=== PATIENT | male | born 1990 | race Hispanic/Latino ===

== ENCOUNTER 2018-06-03 13:57 | Emergency (ER) | payer SELFPAY ==
--- NOTE | 2018-06-03 14:54 | RAD REPORT ---
EXAM DESCRIPTION: Ribs Right - 06/03/2018 2:42 pm CLINICAL HISTORY: Right rib pain FINDINGS: No fracture is seen
--- NOTE | 2018-06-03 14:58 | EDPHYS ---
Physician Documentation [facility] Name: Lewis Rodriguez Age: 27 yrs Sex: Male : 1990 Arrival Date: 06/03/2018 Time: 14:00 Bed 13 Private MD: ED Physician Robert Hernandez HPI: 06/03 14:18 This 27 yrs old Male presents to ER via Ambulatory with complaints of Fall kb Injury. 14:18 Details of fall: The patient fell from an upright position. Onset: The symptoms/episode kb began/occurred yesterday. Associated injuries: The patient sustained injury to the chest, specifically the right lateral posterior chest, tenderness. Severity of symptoms: At their worst the symptoms were moderate, in the emergency department the symptoms are unchanged. The patient has not experienced similar symptoms in the past. The patient has not recently seen a physician. Pt states he was going up some stairs and fell. c/o right posterior lower rib pain.. Historical: - Allergies: 14:09 No Known Allergies; aj - Home Meds: 14:09 None [Active]; aj - PMHx: 14:09 None; aj - PSHx: 14:09 Knee surgery; aj - Immunization history: Last tetanus immunization: - up to date. - Social history:: Smoking status: Patient/guardian denies using tobacco. - Ebola Screening: : Patient negative for fever greater than or equal to 101.5 degrees Fahrenheit, and additional compatible Ebola Virus Disease symptoms Patient denies exposure to infectious person Patient denies travel to an Ebola-affected area in the 21 days before illness onset No symptoms or risks identified at this time. ROS: 14:18 Constitutional: Negative for fever, chills, and weight loss, Respiratory: Negative for kb shortness of breath, cough, wheezing, and pleuritic chest pain, Abdomen/GI: Negative for abdominal pain, nausea, vomiting, diarrhea, and constipation, MS/Extremity: Negative for injury and deformity, Skin: Negative for injury, rash, and discoloration, Neuro: Negative for headache, weakness, numbness, tingling, and seizure. 14:18 Cardiovascular: Positive for chest pain, with movement, of the right lateral posterior chest. Exam: 14:18 Constitutional: This is a well developed, well nourished patient who is awake, alert, kb and in no acute distress. Head/Face: Normocephalic, atraumatic. Cardiovascular: Regular rate and rhythm with a normal S1 and S2. No gallops, murmurs, or rubs. Normal PMI, no JVD. No pulse deficits. Respiratory: Lungs have equal breath sounds bilaterally, clear to auscultation and percussion. No rales, rhonchi or wheezes noted. No increased work of breathing, no retractions or nasal flaring. Abdomen/GI: Soft, non-tender, with normal bowel sounds. No distension or tympany. No guarding or rebound. No evidence of tenderness throughout. Skin: Warm, dry with normal turgor. Normal color with no rashes, no lesions, and no evidence of cellulitis. MS/ Extremity: Pulses equal, no cyanosis. Neurovascular intact. Full, normal range of motion. Neuro: Awake and alert, GCS 15, oriented to person, place, time, and situation. Cranial nerves II-XII grossly intact. Motor strength 5/5 in all extremities. Sensory grossly intact. Cerebellar exam normal. Normal gait. 14:18 Chest/axilla: Inspection: normal, Palpation: tenderness, that is moderate, of the right lateral posterior chest, that totally reproduces the patient's complaints. Vital Signs: 14:03 BP 139 / 79; Pulse 71; Resp 20; Temp 98.1; Pulse Ox 98% on R/A; Weight 63.5 kg; Height aj 5 ft. 9 in. (175.26 cm); 14:54 BP 128 / 82; Pulse 70; Resp 18; Pulse Ox 98% ; tl3 14:03 Body Mass Index 20.67 (63.50 kg, 175.26 cm) aj Mcallen Coma Score: 14:03 Eye Response: spontaneous(4). Verbal Response: oriented(5). Motor Response: obeys aj commands(6). Total: 15. Trauma Score (Adult): 14:03 Eye Response: spontaneous(1); Verbal Response: oriented(1); Motor Response: obeys aj commands(2); Systolic BP: > 89 mm Hg(4); Respiratory Rate: 10 to 29 per min(4); Mcallen Score: 15; Trauma Score: 12 MDM: 14:07 Patient medically screened. zina 14:18 Data reviewed: vital signs, nurses notes. Data interpreted: Pulse oximetry: on room air kb is 98 %. Interpretation: normal. Counseling: I had a detailed discussion with the patient and/or guardian regarding: the historical points, exam findings, and any diagnostic results supporting the discharge/admit diagnosis, radiology results, the need for outpatient follow up, a family practitioner, to return to the emergency department if symptoms worsen or persist or if there are any questions or concerns that arise at home. 06/03 14:08 Order name: Ribs Right XRAY; Complete Time: 14:56 kb Administered Medications: No medications were administered Disposition: 16:13 Co-signature as Attending Physician, Robert Hernandez MD. Disposition: 06/03/18 14:57 Discharged to Home. Impression: Contusion of right back wall of thorax. - Condition is Stable. - Discharge Instructions: Chest Contusion, [id number]. - Medication Reconciliation Form, Thank You Letter, Antibiotic Education, Prescription Opioid Use form. - Follow up: Emergency Department; When: As needed; Reason: Worsening of condition. Follow up: Private Physician; When: 2 - 3 days; Reason: Recheck today's complaints, Continuance of care, Re-evaluation by your physician. Signatures: Dispatcher [employer] EDMS Irma Anand, LOG SKIDDER-C LOG SKIDDER-Iveth Wong RN RN aj Starr, Gregory, MD MD Elena Aviles RN RN tl3 Corrections: (The following items were deleted from the chart) 15:40 14:57 06/03/2018 14:57 Discharged to Home. Impression: Contusion of right back wall of tl3 thorax. Condition is Stable. Forms are Medication Reconciliation Form, Thank You Letter, Antibiotic Education, Prescription Opioid Use. Follow up: Emergency Department; When: As needed; Reason: Worsening of condition. Follow up: Private Physician; When: 2 - 3 days; Reason: Recheck today's complaints, Continuance of care, Re-evaluation by your physician. kb
--- NOTE | 2018-06-03 14:58 | ER ---
Nurse's Notes [facility] Name: Lewis Rodriguez Age: 27 yrs Sex: Male : 1990 Arrival Date: 06/03/2018 Time: 14:00 Bed 13 Private MD: Diagnosis: Contusion of right back wall of thorax Presentation: 06/03 14:03 Presenting complaint: Patient states: Fell walking up stairs hitting right ribs aj yesterday. Patient reports pain when breathing. Ambulated to triage with steady gait. Care prior to arrival: None. Mechanism of Injury: Fall from standing position. Trauma event details: Injury occurred in the [facility], Injury occurred: at home. Injury occurred: June 02, 2018. 14:03 Acuity: LAY 4 aj 14:03 Method Of Arrival: Ambulatory aj 14:08 Transition of care: patient was not received from another setting of care. Onset of aj symptoms was June 02, 2018. 15:32 Risk Assessment: Do you want to hurt yourself or someone else? Patient reports no tl3 desire to harm self or others. Initial Sepsis Screen: Does the patient meet any 2 criteria? No. Patient's initial sepsis screen is negative. Does the patient have a suspected source of infection? No. Patient's initial sepsis screen is negative. Trauma Activation: Not Applicable Physician: ED Physician; Name: ; Notified At: ; Arrived At: Physician: General Surgeon; Name: ; Notified At: ; Arrived At: Physician: Radiology; Name: ; Notified At: ; Arrived At: Physician: Respiratory; Name: ; Notified At: ; Arrived At: Physician: Lab; Name: ; Notified At: ; Arrived At: Historical: - Allergies: 14:09 No Known Allergies; aj - Home Meds: 14:09 None [Active]; aj - PMHx: 14:09 None; aj - PSHx: 14:09 Knee surgery; aj - Immunization history: Last tetanus immunization: - up to date. - Social history:: Smoking status: Patient/guardian denies using tobacco. - Ebola Screening: : Patient negative for fever greater than or equal to 101.5 degrees Fahrenheit, and additional compatible Ebola Virus Disease symptoms Patient denies exposure to infectious person Patient denies travel to an Ebola-affected area in the 21 days before illness onset No symptoms or risks identified at this time. Screenin:03 Abuse screen: Denies threats or abuse. Denies injuries from another. Tuberculosis aj screening: No symptoms or risk factors identified. 14:54 Nutritional screening: No deficits noted. Fall Risk None identified. tl3 Primary Survey: 14:03 Breathing/Chest: Respiratory pattern: regular, Respiratory effort: spontaneous, aj unlabored, Breath sounds: clear, bilaterally. Chest inspection: symmetrical rise and fall of the chest. Circulation: Skin color: pink, Skin temperature: warm, dry. Disability Alert. Assessment: 14:03 General: Appears in no apparent distress. comfortable, Behavior is calm, cooperative, aj appropriate for age. Pain: Complains of pain in right eighth rib, right ninth rib and right tenth rib. Neuro: Level of Consciousness is awake, alert, obeys commands, Oriented to person, place, time, situation, Appropriate for age. Respiratory: Reports pain with respiration since yesterday Airway is patent Respiratory effort is even, unlabored, Respiratory pattern is regular, symmetrical. Derm: Skin is intact, is healthy with good turgor, Skin is pink, warm \T\ dry. normal. 14:54 Reassessment: Patient and/or family updated on plan of care and expected duration. Pain tl3 level reassessed. Patient is alert, oriented x 3, equal unlabored respirations, skin warm/dry/pink. chest xray complete, no needs at this time. Vital Signs: 14:03 BP 139 / 79; Pulse 71; Resp 20; Temp 98.1; Pulse Ox 98% on R/A; Weight 63.5 kg; Height aj 5 ft. 9 in. (175.26 cm); 14:54 BP 128 / 82; Pulse 70; Resp 18; Pulse Ox 98% ; tl3 14:03 Body Mass Index 20.67 (63.50 kg, 175.26 cm) aj Cordova Coma Score: 14:03 Eye Response: spontaneous(4). Verbal Response: oriented(5). Motor Response: obeys aj commands(6). Total: 15. Trauma Score (Adult): 14:03 Eye Response: spontaneous(1); Verbal Response: oriented(1); Motor Response: obeys aj commands(2); Systolic BP: > 89 mm Hg(4); Respiratory Rate: 10 to 29 per min(4); Cordova Score: 15; Trauma Score: 12 ED Course: 14:00 Patient arrived in ED. rg4 14:03 Irma Anand FNP-C is [facility]. kb 14:03 Robert Hernandez MD is Attending Physician. kb 14:05 Triage completed. aj 14:09 Arm band placed on left wrist. Patient placed in an exam room. aj 14:26 Elena Aviles, RN is Primary Nurse. tl3 14:40 X-ray completed. Patient tolerated procedure well. kp1 14:41 Ribs Right XRAY In Process Unspecified. EDMS 14:54 Patient has correct armband on for positive identification. Bed in low position. Call tl3 light in reach. Side rails up X 1. Pulse ox on. NIBP on. Warm blanket given. 14:54 No provider procedures requiring assistance completed. Patient did not have IV access tl3 during this emergency room visit. Administered Medications: No medications were administered Outcome: 14:57 Discharge ordered by MD. kb 15:15 Discharged to home ambulatory. tl3 15:15 Condition: stable 15:40 Patient left the ED. tl3 Signatures: Dispatcher [employer] EDMT Irma Anand FNP-C FNP-Iveth Wong, RN RN Josie Hardwick rg4 Flaquita Sarabia kp1 Elena Aviles, RN RN tl3 Corrections: (The following items were deleted from the chart) 15:37 15:15 Discharged to home ambulatory, tl3 tl3 15:37 15:15 Condition: stable tl3 tl3 15:37 15:15 Discharge instructions given to patient, Instructed on discharge instructions, tl3 follow up and referral plans. medication usage, Demonstrated understanding of instructions, follow-up care, medications, Prescriptions given X 1, stressed returning to ER with any returning S/S tl3 15:39 15:32 PO 0, IV 1000, Intake Total 1000. tl3 tl3 15:39 15:33 BP 138 / 59 Supine; Pulse 63bpm; Resp 16bpm; Spontaneous; Pulse Ox 100%; tl3 tl3 15:39 15:34 BP 149 / 67 Sitting; Pulse 72bpm; Resp 16bpm; Pulse Ox 100%; tl3 tl3 15:39 15:35 BP 145 / 63 Standing; Pulse 76bpm; Resp 18bpm; Pulse Ox 100% RA; tl3 tl3 15:39 15:37 Discharge instructions given to patient, Instructed on discharge instructions, tl3 follow up and referral plans. medication usage, Demonstrated understanding of instructions, follow-up care, medications, Prescriptions given X 1, prior to discharge orthostatic B/P 's done and pt ambulated to restroom without dizziness or distress, stated she felt better, stressed returning to ER with any returning S/S tl3 : 15:37 Discharged to home ambulatory, 3 3 15:37 Condition: stable 3 3
[2018-06-03 15:49] VITALS: TEMP 98.1; O2SAT 98
[2018-06-03 15:51] VITALS: BP 128/82
== END 2018-06-03 15:40 | disposition home or self-care (01) ==
LOC: ER 13:57
DX: S20.221A Contusion of right back wall of thorax, initial encounter (principal); W17.89XA Other fall from one level to another, initial encounter; Y93.01 Activity, walking, marching and hiking; Y92.018 Other place in single-family (private) house as the place of occurrence of the external cause
CPT/HCPCS: 99283

== ENCOUNTER 2024-09-22 01:31 | Emergency (ER) | payer SELFPAY ==
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
[2024-09-22] MEDS ORDERED: PANTOPRAZOLE 40 MG INJ ONE (02:15)
[2024-09-22] MEDS ORDERED: ONDANSETRON 4 MG/2 ML VIAL ONE (02:15)
[2024-09-22] MEDS ORDERED: NA CHLORIDE 0.9% 1,000 ML ONE (02:16)
[2024-09-22] MEDS ORDERED: FAMOTIDINE 20 MG/2 ML VIAL IV ONE (02:16)
[2024-09-22 02:36] LABS: Absolute Basophils 0.1 K/uL (0-0.5); Absolute Lymphocytes (CBC) 1.9 K/uL (0.7-4.9); Absolute Monocytes 1.1 K/uL (0.1-1.3); Absolute Neutrophil 10.3 K/uL (1.8-8.0); Basophils % 0.5 % (0-1.3); Eosinophils % 0.1 % (0-4.4); Hematocrit 47.5 % (39.6-49.0); Hemoglobin 15.9 g/dL (13.6-17.9); Lymphocytes % 13.9 % (15.3-44.8); MCH 31.9 pg (27.0-35.0); MCHC 33.5 g/dL (32.0-36.0); MCV 95.2 fL (80-100); MPV 7.1 fL (7.6-11.3); Monocytes % 8.1 % (3.3-12.3); Neutrophils % 77.4 % (41.7-73.7); Platelets 327 thou/uL (152-406); RBC Red Blood Cell Count 4.99 M/uL (4.33-5.43); Red Cell Distribution Width 13.1 % (12.1-15.2)
[2024-09-22 02:42] LABS: Protime INR 0.98
[2024-09-22 02:52] LABS: Albumin/Globulin Ratio 1.1 (1.1-1.8); Anion Gap 12.1 mEq/L (5.0-15.0); Bilirubin Total 0.7 mg/dL (0.2-1.0); Globulin 3.6 g/dL (2.3-3.5); Potassium 3.1 mEq/L (3.5-5.1); Protein, Total 7.6 g/dL (6.4-8.2)
[2024-09-22 03:38] LABS: Barbiturates NEGATIVE (NEGATIVE); Benzodiazepines NEGATIVE (NEGATIVE); Cocaine POSITIVE (NEGATIVE); METHAMPHETAM NEGATIVE (NEGATIVE); Methadone NEGATIVE (NEGATIVE); Opiates NEGATIVE (NEGATIVE); Phencyclidine NEGATIVE (NEGATIVE); THC Cannibis POSITIVE (NEGATIVE)
--- NOTE | 2024-09-22 05:30 | RAD REPORT ---
EXAM DESCRIPTION: Abdomen Pelvis W Contrast RadLex: CT ABDOMEN PELVIS WITH IV CONTRAST CLINICAL HISTORY: 34 years Male; ABD PAIN; IV ONLY Bed Name: 17 TECHNIQUE: CT of the abdomen and pelvis [with] intravenous contrast. All CT scans at this facility use dose modulation, iterative reconstruction, and/or weight based dosi ng when appropriate to reduce radiation dose to as low as reasonably achievable. COMPARISON: None. FINDINGS: Lower thorax: Lung bases are clear Abdomen: Stomach: Within normal limits Liver: No focal lesions. No intrahepatic ductal distention. Gallbladder: Nondistended Pancreas: Within normal limits Spleen: Within normal limits Right kidney: No hydronephrosis. No focal lesion. Left kidney: No hydronephrosis. No focal lesion. Adrenal glands: Within normal limits Vascular structures: Within normal limits Nodes: No lymphadenopathy by size criteria Pelvis: Small bowel: No significant distention. Appendix: Within normal limits Colon: No distention or acute pericolonic edema. Questionable mild wall thickening of the descending colon, could be secondary to underdistention. Peritoneum: No free intraperitoneal fluid or air. Bones: No acute bone findings. Bilateral L5 pars defects. Bladder: Unremarkable. Reproductive organs: No acute findings. IMPRESSION: 1. Questionable mild wall thickening of the descending colon, could be secondary to underdistention . Correlate for colitis. 2. Bilateral L5 pars defects. Electronically signed by: Demetrio Gonzalez MD 09/22/2024 05:19 AM [facility] Z9 Due to temporary technical issues with the [employer] reporting system, reports are being jamin d by the in-house radiologist without review as a courtesy to ensure prompt reporting the interpreting radiologist is fully responsible for the content of the report. Transcribed Date/Time: 09/22/2024 5:29 AM
--- NOTE | 2024-09-22 06:25 | EDPHYS ---
Physician Documentation [facility] Name: Lewis Rodriguez Age: 34 yrs Sex: Male : 1990 Arrival Date: 09/22/2024 Time: 01:31 Bed 17 Private MD: ED Physician Milton Jorge HPI: 09/22 02:03 This 34 yrs old Male presents to ER via EMS with complaints of vomiting blood .sp4 02:03 34-year-old male presents with complaint of cocaine abuse dizziness tingling and sp4 vomiting blood.. 02:04 Patient states he snorted cocaine yesterday morning at about 3 AM and ever since then sp4 he has been feeling unwell, he has had several episodes of bloody emesis. Historical: - Allergies: 01:37 No Known Allergies; rg5 - Immunization history:: Adult Immunizations not up to date. - Infectious Disease History:: Denies. - Social history:: Smoking status: Patient reports the use of cigarette tobacco products, smokes one pack cigarettes per day. - Family history:: not pertinent. ROS: 02:04 Constitutional: Negative for fever, chills, and weight loss, positive numbness tingling sp4 and positive vomiting blood 02:04 All other systems are negative, Exam: 02:04 Constitutional: This is a well developed, well nourished patient who is awake, alert, sp4 and in no acute distress. Head/Face: Normocephalic, atraumatic. Eyes: Pupils equal round and reactive to light, extra-ocular motions intact. Lids and lashes normal. Conjunctiva and sclera are not injected. Cornea within normal limits. Periorbital areas with no swelling, redness, or edema. ENT: Nares patent. No nasal discharge, no septal abnormalities noted. Tympanic membranes are normal and external auditory canals are clear. Oropharynx with no redness, swelling, or masses, exudates, or evidence of obstruction, uvula midline. Mucous membranes moist. Neck: Trachea midline, no thyromegaly or masses palpated, and no cervical lymphadenopathy. Supple, full range of motion without nuchal rigidity, or vertebral point tenderness. Chest/axilla: Normal chest wall appearance and motion. Nontender with no deformity. No lesions are appreciated. Cardiovascular: Regular rate and rhythm with a normal S1 and S2. No gallops, murmurs, or rubs. Normal PMI, no JVD. No pulse deficits. Respiratory: Lungs have equal breath sounds bilaterally, clear to auscultation and percussion. No rales, rhonchi or wheezes noted. No increased work of breathing, no retractions or nasal flaring. Abdomen/GI: Soft, with normal bowel sounds. No distension or tympany. No guarding or rebound. No evidence of tenderness throughout. Back: No spinal tenderness. No costovertebral tenderness. Skin: Warm, dry with normal turgor. Normal color with no rashes, no lesions, and no evidence of cellulitis. MS/ Extremity: Pulses equal, no cyanosis. Neurovascular intact. Full, normal range of motion. Neuro: Awake and alert, GCS 15, oriented to person, place, time, and situation. Cranial nerves II-XII grossly intact. Motor strength 5/5 in all extremities. Sensory grossly intact. Psych: Awake, alert, with orientation to person, place and time. Behavior, mood, and affect are within normal limits Vital Signs: 01:36 BP 141 / 92; Pulse 105; Resp 19; Temp 98; Pulse Ox 95% ; rg5 01:37 BP 141 / 92; Pulse 107; Resp 19; Temp 97.8(O); Pulse Ox 100% ; Weight 63.5 kg; Height 5 rg5 ft. 9 in. ; 02:15 BP 132 / 72; Pulse 110; Resp 19; Pulse Ox 100% on R/A; rg5 03:16 BP 134 / 74; Pulse 82; Resp 17; Pulse Ox 95% on R/A; rg5 04:09 BP 98 / 56; Pulse 87; Resp 17; Temp 98; Pulse Ox 97% on R/A; Pain 0/10; rg5 05:38 BP 115 / 58; Pulse 63; Resp 18; Pulse Ox 100% on R/A; kj2 06:51 BP 116 / 66; Pulse 80; Resp 20; Temp 98; Pulse Ox 100% on R/A; kj2 01:37 Body Mass Index 20.67 (63.50 kg, 175.26 cm) 5 04:09 Pain Scale: Adult 5 [place] Coma Score: 02:04 Eye Response: spontaneous(4). Motor Response: obeys commands(6). Verbal Response: sp4 oriented(5). Total: 15. MDM: 02:11 Medical Screening Exam initiated sp4 06:23 ED course: EXAM DESCRIPTION: Abdomen Pelvis W Contrast RadLex: CTABDOMEN PELVIS WITH IV sp4 CONTRAST CLINICAL HISTORY: 34 years Male; ABD PAIN; IV ONLYBed Name: 17 TECHNIQUE: CT of the abdomen and pelvis [with] intravenous contrast. All CT scans at this facility use dose modulation, iterative reconstruction, and/or weight based dosing when appropriate to reduce radiation dose to as low as reasonably achievable. COMPARISON: None. FINDINGS: Lower thorax: Lung bases are clear Abdomen: Stomach:Within normal limits Liver:No focal lesions. No intrahepatic ductal distention. Gallbladder:Nondistended Pancreas:Within normal limits Spleen:Within normal limits Right kidney:No hydronephrosis. No focal lesion. Left kidney:No hydronephrosis. No focal lesion. Adrenal glands:Within normal limits Vascular structures:Within normal limits Nodes:No lymphadenopathy by size criteria Pelvis: Small bowel:No significant distention. Appendix:Within normal limits Colon:No distention or acute pericolonic edema. Questionable mild wall thickening of the descending colon, could be secondary to underdistention. Peritoneum: No free intraperitoneal fluid or air. Bones: No acute bone findings. Bilateral L5 pars defects. Bladder: Unremarkable. Reproductive organs: No acute findings. IMPRESSION: 1. Questionable mild wall thickening of the descending colon, could be secondary to under distention. Correlate for colitis. 2. Bilateral L5 pars defects. Electronically signed by: Demetrio Gonzalez MD 09/22/2024 05:19 AM . 20:03 Differential diagnosis: gastritis, diverticulitis, varices, Esophageal Teresa-Alvarenga sp4 tear. Data reviewed: vital signs, nurses notes, old medical records, lab test result(s), radiologic studies, CT scan. ED course: Patient did not manifest with bloody emesis in the ER. Stable for discharge home with p.o. Pepcid will advise patient to stay away from recreational substances.. 09/22 02:04 Order name: CBC with Diff; Complete Time: 04:15 sp4 09/22 02:04 Order name: CMP; Complete Time: 04:15 sp4 09/22 02:04 Order name: Lipase; Complete Time: 04:15 sp4 09/22 02:04 Order name: Urine Drug Screen; Complete Time: 04:15 sp4 09/22 02:04 Order name: PT-INR; Complete Time: 04:15 sp4 09/22 02:04 Order name: CT Abd/Pelvis - IV Contrast Only sp4 09/22 02:04 Order name: IV Saline Lock; Complete Time: 02:24 sp4 09/22 02:04 Order name: Labs collected and sent; Complete Time: 02:24 sp4 Administered Medications: 02:24 Drug: Famotidine IVP 20 mg IVP once; dilute with 10 mL 0.9% NaCl; give over 2 minutes rg5 Route: IVP; Site: right antecubital; 03:02 Follow up: Response: No adverse reaction rg5 02:24 Drug: Ondansetron IVP 4 mg IVP once; over 2 minutes Route: IVP; Site: right antecubital;rg5 03:02 Follow up: Response: No adverse reaction rg5 02:24 Drug: NS 0.9% IV 1000 ml IV at 1 bolus Per protocol; to be given as a bolus over 60 rg5 minutes Route: IV; Rate: 1 bolus; Site: right antecubital; 03:30 Follow up: IV Status: Completed infusion; IV Intake: 1000ml rg5 02:24 Drug: Pantoprazole IVP 80 mg IVP once Route: IVP; Site: right antecubital; rg5 03:02 Follow up: Response: No adverse reaction rg5 Disposition Summary: 09/22/24 06:25 Discharge Ordered Notes: Location: Home sp4 Problem: new sp4 Symptoms: have improved sp4 Condition: Stable sp4 Diagnosis - Hematemesis sp4 - Cocaine abuse sp4 - Acute gastritis with bleeding sp4 Followup: sp4 - With: Private Physician - When: 7 - 10 days - Reason: Recheck today's complaints Discharge Instructions: - Discharge Summary Sheet sp4 - Gastritis, Adult sp4 Forms: - Patient Portal Instructions sp4 Prescriptions: - Pepcid 40 mg Oral tablet - take 1 tablet ORAL route daily for 30 days; 30 tablet; Refills: 0, Product sp4 Selection Permitted Signatures: Dispatcher [employer] Milton Storey MD MD sp4 Bar Silverio RN RN rg5 Corrections: (The following items were deleted from the chart) 02:04 02:04 CBC+H.LAB.BRZ ordered. EDMS EDMS 02:04 02:04 COMPREHENSIVE METABOLIC PANEL+C.LAB.BRZ ordered. EDMS EDMS 02:04 02:04 LIPASE+C.LAB.BRZ ordered. EDMS EDMS
--- NOTE | 2024-09-22 06:25 | ER ---
Nurse's Notes [facility] Name: Lewis Rodriguez Age: 34 yrs Sex: Male : 1990 Arrival Date: 09/22/2024 Time: 01:31 Bed 17 Private MD: Diagnosis: Hematemesis;Cocaine abuse;Acute gastritis with bleeding Presentation: 09/22 01:37 Chief complaint: EMS states: his mom called us coz he was shaking badly and vomiting. rg5 patient admitted use of cocaine earlier in the morning. 01:37 Coronavirus screen: Client denies travel out of the [place] in the last 14 days. Ebola rg5 Screen: Patient negative for fever greater than or equal to 101.5 degrees Fahrenheit, and additional compatible Ebola Virus Disease symptoms. Initial Sepsis Screen: Does the patient meet any 2 criteria? No. Patient's initial sepsis screen is negative. Does the patient have a suspected source of infection? No. Patient's initial sepsis screen is negative. Risk Assessment: Do you want to hurt yourself or someone else? Patient reports no desire to harm self or others. Onset of symptoms was September 22, 2024. 01:37 Method Of Arrival: EMS: [facility] 5 01:37 Acuity: LAY 3 rg5 Triage Assessment: 01:37 General: Appears in no apparent distress. Behavior is calm, cooperative. Pain: Denies rg5 pain. EENT: No deficits noted. Neuro: Level of Consciousness is awake, alert, Oriented to person, place, time. Cardiovascular: Patient's skin is warm and dry. Respiratory: Airway is patent Trachea midline Respiratory effort is even, unlabored, Respiratory pattern is regular, symmetrical. GI: Abdomen is flat, non-distended. : No signs and/or symptoms were reported regarding the genitourinary system. Derm: Skin is intact, Skin is dry, Skin is normal. Musculoskeletal: Circulation, motion, and sensation intact. Range of motion: intact in all extremities. Historical: - Allergies: 01:37 No Known Allergies; rg5 - Immunization history:: Adult Immunizations not up to date. - Infectious Disease History:: Denies. - Social history:: Smoking status: Patient reports the use of cigarette tobacco products, smokes one pack cigarettes per day. - Family history:: not pertinent. Screenin:40 [facility] ED Fall Risk Assessment (Adult) History of falling in the last 3 months, rg5 including since admission No falls in past 3 months (0 pts) Confusion or Disorientation No (0 pts) Intoxicated or Sedated No (0 pts) Impaired Gait No (0 pts) Mobility Assist Device Used No (0 pt) Altered Elimination No (0 pt) Score/Fall Risk Level 0 - 2 = Low Risk Oriented to surroundings, Maintained a safe environment, Hourly rounding (assess needs \T\ fall precautionary measures) done. Abuse screen: Denies threats or abuse. Nutritional screening: No deficits noted. Tuberculosis screening: No symptoms or risk factors identified. Assessment: 01:51 Reassessment: see triage assessment. rg5 02:25 Reassessment: No changes from previously documented assessment. Patient and/or family rg5 updated on plan of care and expected duration. Pain level reassessed. Patient is alert, oriented x 3, equal unlabored respirations, skin warm/dry/pink. 03:22 Reassessment: Patient and/or family updated on plan of care and expected duration. Pain rg5 level reassessed. Patient is alert, oriented x 3, equal unlabored respirations, skin warm/dry/pink. 04:11 Reassessment: Patient and/or family updated on plan of care and expected duration. Pain rg5 level reassessed. Patient is alert, oriented x 3, equal unlabored respirations, skin warm/dry/pink. Patient states feeling better. 05:15 Reassessment: Patient appears in no apparent distress at this time. Patient and/or kj2 family updated on plan of care and expected duration. Pain level reassessed. Patient is alert, oriented x 3, equal unlabored respirations, skin warm/dry/pink. 06:51 Reassessment: Patient appears in no apparent distress at this time. Patient and/or kj2 family updated on plan of care and expected duration. Pain level reassessed. Patient is alert, oriented x 3, equal unlabored respirations, skin warm/dry/pink. Vital Signs: 01:36 BP 141 / 92; Pulse 105; Resp 19; Temp 98; Pulse Ox 95% ; rg5 01:37 BP 141 / 92; Pulse 107; Resp 19; Temp 97.8(O); Pulse Ox 100% ; Weight 63.5 kg; Height 5 rg5 ft. 9 in. ; 02:15 BP 132 / 72; Pulse 110; Resp 19; Pulse Ox 100% on R/A; rg5 03:16 BP 134 / 74; Pulse 82; Resp 17; Pulse Ox 95% on R/A; rg5 04:09 BP 98 / 56; Pulse 87; Resp 17; Temp 98; Pulse Ox 97% on R/A; Pain 0/10; rg5 05:38 BP 115 / 58; Pulse 63; Resp 18; Pulse Ox 100% on R/A; kj2 06:51 BP 116 / 66; Pulse 80; Resp 20; Temp 98; Pulse Ox 100% on R/A; kj2 01:37 Body Mass Index 20.67 (63.50 kg, 175.26 cm) rg5 04:09 Pain Scale: Adult rg5 [place] Coma Score: 02:04 Eye Response: spontaneous(4). Motor Response: obeys commands(6). Verbal Response: sp4 oriented(5). Total: 15. ED Course: 01:36 Patient arrived in ED. kmf 01:37 Arm band placed on. rg5 01:40 Bar Silverio, BRIANA is Primary Nurse. rg5 01:40 Patient has correct armband on for positive identification. Door closed. Noise rg5 minimized. 01:40 No provider procedures requiring assistance completed. Inserted saline lock: 20 gauge rg5 in right antecubital area, using aseptic technique. Blood collected. Flushed with 10 mL NS. 01:49 Triage completed. rg5 02:03 Milton Jorge MD is Attending Physician. sp4 03:32 CT Abd/Pelvis - IV Contrast Only In Process Unspecified. EDMS 04:11 Provided Education on: POST ER CARE. rg5 06:52 IV discontinued, intact, bleeding controlled, No redness/swelling at site. Pressure kj2 dressing applied. Administered Medications: 02:24 Drug: Famotidine IVP 20 mg IVP once; dilute with 10 mL 0.9% NaCl; give over 2 minutes rg5 Route: IVP; Site: right antecubital; 03:02 Follow up: Response: No adverse reaction rg5 02:24 Drug: Ondansetron IVP 4 mg IVP once; over 2 minutes Route: IVP; Site: right antecubital;rg5 03:02 Follow up: Response: No adverse reaction rg5 02:24 Drug: NS 0.9% IV 1000 ml IV at 1 bolus Per protocol; to be given as a bolus over 60 rg5 minutes Route: IV; Rate: 1 bolus; Site: right antecubital; 03:30 Follow up: IV Status: Completed infusion; IV Intake: 1000ml rg5 02:24 Drug: Pantoprazole IVP 80 mg IVP once Route: IVP; Site: right antecubital; rg5 03:02 Follow up: Response: No adverse reaction rg5 Medication: 01:40 VIS not applicable for this client. rg5 Intake: 03:30 IV: 1000ml; Total: 1000ml. rg5 Outcome: 06:25 Discharge ordered by MD. joseph 06:51 Discharged to home ambulatory, kj2 06:51 Condition: stable 06:51 Discharge instructions given to patient, Instructed on discharge instructions, follow up and referral plans. medication usage, Demonstrated understanding of instructions, follow-up care, medications, Prescriptions given X 1, 06:52 Patient left the ED. kj2 Signatures: Dispatcher [employer] EDMilton Sparks MD MD sp4 Bibi n[facility] Bar Silverio RN RN rg5 Helen Rosa RN RN kj2
[2024-09-22 08:41] VITALS: TEMP 98
[2024-09-22 08:42] VITALS: O2SAT 100
[2024-09-22 08:43] VITALS: BP 116/66
== END 2024-09-22 06:52 | disposition home or self-care (01) ==
LOC: ER 01:31
DX: K92.0 Hematemesis (principal); F14.10 Cocaine abuse, uncomplicated; K29.01 Acute gastritis with bleeding
CPT/HCPCS: 36415; 74177; 80053; 80307; 83690; 85025; 85610; 96361; 96374; 96375; 99284; J2405; J2470; J7030; Q9967

== ENCOUNTER 2025-05-26 21:58 | Emergency (ER) | payer OTHER ==
--- OUTSIDE RECORDS SUMMARY | 2025-05-26 22:01 | XMS REPORT | Continuity of Care Document ---
Author Name Unknown Address [address] [place] [address] Organization [facility] Address [address] [place] [address] Care Team Providers Care Brand Advocate Name Role Phone PCP, PATIENT DOES NOT HAVE A Primary Care Physic jae Unavailable LOIS TORO Attending Clinician Unavailable LOIS TORO Attending Clinician Unavailable Mae SINGH Attending Clinician Unavailable Mae SINGH Attending Clinician Unavailable DARYL THAKUR Attending Clinician Unavailable Daryl Thakur MD Attending Clinician [phone] CASEY BENJAMIN Attending Clinician Unavailable CASEY BENJAMIN Attending Clinician Unavailable Casey Benjamin MD Attending Clinician [phone] Doctor Unassigned, [place] Attending Clinician U navailable Lab, Adc Fam Pob I Attending Clinician Unavailab Pily Holguin Attending Clinician [phone] PILY QUILES Attending Clinician Unavailable Mae SINGH Admitting Clinician Unavailable CASEY BENJAMIN Admitting Clinician Unavailable Payers Payer Name Policy Type Policy Number Effective Date Expirati on Date Source HIM [facility] [id number] 2020 00:00:00 [facility] Jake MCCOLLUM [id number] 2024 00:00:00 Problems Condition Name Condition Details Condition Category Status Onset Date Resolution Date Last Treatment Date Treating Clinician Comments Source No known active problems No known active problems Disease [facility] Allergies, Adverse Reactions, Alerts Allergy Name Allergy Type Status Severity Reaction(s) Onset Date Inactive Date Treating Clinician Comments Source NO KNOWN ALLERGIE S Drug Class Active [facility] Social History Social Habit Start Date Stop Date Quantity Comments Source Exposure to SARS-CoV-2 (event) Not sure [facility] of tobacco use Cigarette Smoker [facility] Cigarettes smoked current (pack per day) - Reported 2024-07-27 00:00:00 2024-07-27 00:00:00 [facility] Cigarette pack-years 2024-07-27 00:00:00 2024-07-27 00:00:00 [facility] Tobacco use and exposure 2024-07-27 00:00:00 2024-07-27 00:00:00 User of smokeless tobacco [facility] History of Social function 2024-07-27 00:00:00 2024-07-27 00:00:00 [facility] Tobacco Comment 2024-07-27 00:00:00 2024-07-27 00:00:00 vape [facility] Sex assigned at 1990 00:00:00 1990 00:00:00 [facility] Smoking Status Start Date Stop Date Source Smokes tobacco daily 2024-07-27 00:00:00 [facility] Tobacco smoking consumption unknown [facility] Medications Ordered Medication Name Filled Medication Name Start Date Stop Date Current Medication? Ordering Clinician Indication Dosage Frequency Signature (SIG) Comments Components Source ibuprofen (IBU) tablet 600 mg 02-25 04:30: 00 02-25 04:38 :00 No 600mg 600 mg, Oral, ONCE, 1 dose, On 02/24/25 at 2330, DOUG [facility] HYDROcodone -acetaminop hen (NORCO 5) tablet 1 tablet 02-25 04:30: 00 02-25 04:38 :00 No 1{tbl} 1 tablet, Oral, ONCE, 1 dose, On 02/24/25 at 2330, DOUG [facility] ibuprofen 800 mg tablet 02-25 00:00: 00 Yes [id number] 800mg Take 1 tablet by mouth every 8 (eight) hours as needed for Pain (scale 4-6). [facility] ketorolac (TORADOL) injection 15 mg 2023-10 22:00: 00 07-23 21:24 :00 No 15mg 15 mg, Intramuscu lar, ONCE, 1 dose, On Tue07/23/24 at 1700, Routine [facility] methocarbam oL (ROBAXIN) tablet 1,000 mg 2023-10 21:15: 00 07-23 21:22 :00 No 1000mg 1,000 mg, Oral, ONCE, 1 dose, On Tue07/23/24 at 1615, DOUG [facility] methocarbam oL 750 mg tablet 2023-10 00:00: 00 Yes [id number] 9109 750mg Take 1 tablet by mouth 3 (three) times daily as needed for Pain (scale 7-10) or Pain (scale 4-6). [facility] cyclobenzap rine 10 mg tablet 11-10 00:00: 00 Yes [id number] 10mg Take 1 tablet by mouth 3 (three) times daily. [facility] ibuprofen 600 mg tablet 11-10 00:00: 00 Yes [id number] 600mg Take 1 tablet by mouth every 6 (six) hours as needed for Pain (scale 4-6). [facility] Vital Signs Vital Name Observation Time Observation Value Comments S ource Body temperature 2025-02-25 06:00:00 36.83 Genia [facility] Respiratory rate 2025-02-25 06:00:00 18 /min [facility] Oxygen saturation in Arterial blood by Pulse oximetry 2025-02-25 06:00:00 95 /min [facility] Systolic blood pressure 2025-02-25 06:00:00 97 mm[Hg] [facility] Diastolic blood pressure 2025-02-25 06:00:00 71 mm[Hg] [facility] Heart rate 2025-02-25 06:00:00 72 /min [facility] Body height 2025-02-25 04:10:00 175.3 cm [facility] Body weight 2025-02-25 04:10:00 68.811 [facility] [place] BMI 2025-02-25 04:10:00 22.40 [facility] Sy[facility]olic blood pressure 2024-07-27 19:41:00 132 mm[Hg] [place] [facility] [place] Diastolic blood pressure 2024-07-27 19:41:00 84 mm[Hg] [facility] Heart rate 2024-07-27 19:41:00 66 /min [facility] Body temperature 2024-07-27 19:41:00 36.94 Genia [facility] Body height 2024-07-27 19:41:00 175.3 cm [facility] Body weight 2024-07-27 19:41:00 61.372 kg Univ [facility] BMI 2024-07-27 19:41:00 19.98 kg/m2 [facility] Oxygen saturation in Arterial blood by Pulse oximetry 2024-07-27 19:41:00 99 /min [facility] Systolic blood pressure 2024-07-23 21:06:00 128 mm[Hg] [facility] Diastolic blood pressure 2024-07-23 21:06:00 107 mm[Hg] [facility] Heart rate 2024-07-23 21:06:00 72 /min [facility] Body temperature 2024-07-23 21:06:00 37 Genia [facility] Respiratory rate 2024-07-23 21:06:00 20 /min [facility] Body height 2024-07-23 21:06:00 175.3 cm [facility] weight 2024-07-23 21:06:00 65.772 [facility] BMI 2024-07-23 21:06:00 21.41 kg/m2 [facility] Oxygen saturation in Arterial blood by Pulse oximetry 2024-07-23 21:06:00 99 /min [facility] Systolic blood pressure 2020-11-10 18:02:00 111 mm[Hg] [facility] Diastolic blood pressure 2020-11-10 18:02:00 64 mm[Hg] [place] [facility] Heart rate 2020-11-10 18:02:00 70 /min [facility] Body temperature 2020-11-10 18:02:00 37.06 Genia [facility] Respiratory rate 2020-11-10 18:02:00 18 /min [facility] Oxygen saturation in Arterial blood by Pulse oximetry 2020-11-10 18:02:00 99 /min [place] Body weight 2020-11-10 18:00:00 65.772 kg [facility] Procedures Procedure Date / Time Performed Performing Clinician Source ED SPLINT APPLICATION 2025-02-25 05:30:00 Mae Singh [facility] XR HAND <3 VW RIGHT 2024-07-23 21:34:43 Casey Benjamin [facility] COMP. METABOLIC PANEL (73702) 2024-07-23 21:19:00 Casey Benjamin [facility] CBC WITH DIFF 2024-07-23 21:19:00 Casey Benjamin [facility] XR LUMBAR SPINE 3 VW 2020-11-10 18:41:09 Akbar Joseph [facility] CONSENT/REFUSAL FOR DIAGNOSIS AND TREATMENT 2020-11-10 17:41:07 Doctor Unassigned, [place] [facility] NOTICE OF PRIVACY PRACTICES 2020-11-10 17:40:53 Doctor Unassigned, [place] [facility] Encounters Start Date/Time End Date/Time Encounter Type Admission Type Attending Clinicians Care Facility Care Department Encounter ID Source 2021-08-15 19:21:33 Emergency [facility] [id number] [facility] 2025-04-08 16:30:00 2025-04-08 16:30:00 Outpatient LOIS GARCIA SELENA [facility] [id number] [facility] 2025-02-28 15:30:00 2025-02-28 16:29:39 Outpatient R LOIS TORO SELENA [facility] [id number] [facility] 2025-02-28 15:30:00 2025-02-28 15:30:00 Outpatient R LOIS TORO SELENA [facility] [id number] [facility] 2025-02-24 23:15:00 2025-02-25 01:11:00 Emergency X SAMANTHAMae K [facility] ERT [id number] [facility] 2025-02-24 23:15:00 2025-02-25 01:11:00 Emergency X SAMANTHA Mae JONES [facility] ERT [id number] [facility] 2024-08-06 16:55:34 2024-08-06 16:55:34 Outpatient YANIRA [facility] [id number] [facility] [place] 2024-07-27 14:15:00 2024-07-27 15:14:27 Outpatient R DARYL THAKUR [facility] [id number] [facility] 2024-07-27 14:15:00 2024-07-27 15:14:27 Office Visit Daryl Thakur [facility]) [id number] [id number] [id number] [facility] 2024-07-23 16:09:00 2024-07-23 17:54:00 Emergency X CASEY BENJAMIN KENT [facility] ERT [id number] [facility] 2024-07-23 16:09:00 2024-07-23 17:54:00 Emergency HarCasey green A [facility] [id number] [id number] 4.2.7.2.686 [id number] [facility] 2020-11-10 12:06:00 2020-11-10 15:15:00 Emergency Mae Singh [facility] [id number] [id number] 4.2.7.2.686 [id number] [facility] 2020-11-10 00:00:00 2020-11-10 00:00:00 Orders Only Doctor Unassigned, [place] [facility] [id number] [id number] 4.2.7.2.686 [id number] [facility] 2020-10-23 11:10:04 2020-10-23 11:30:04 Laboratory Only Lab, Adc Fam Pob I Pily Quiles [facility] Office [address] [id number] [id number] [id number] [id number] [facility] 2020-10-23 11:00:00 2020-10-23 11:00:00 Outpatient R PILY QUILES [facility] [id number] [facility] Results Test Description Test Time Test Comments Results Resul t Comments Source XR HAND <3 VW RIGHT 22:18:55 ORDERING PHYSICIAN: CASEY BENJAMIN. HISTORY: pain TECHNIQUE: 2 views COMPARISON: None. FINDINGS: Alignment is anatomic. Joint spaces are maintained. No fracture isidentified. A small soft tissue nodule projects at the dorsal aspect of thesmall finger, near the PIP joint. There is long finger soft tissue swellinglocated near the PIP joint. [facility] [id number] 21:44:59* Test Item Value Reference Range Interpretation [...] 34.0 g/dL 31.2-35.0 RDW-SD (test code = 11895-7) 41.6 fL 38.5-51.6 RDW-CV (test code = 788-0) 12.1 % 12.1-15.4 PLT (test code = 777-3) 318 150-328 MPV (test code = 57655-9) 9.0 fL 9.8-13.0 L NRBC/100 WBC (test code = 6206729558) 0.0 0.0-10.0 NRBC x10^3 (test code = 5805737559) See_Comment [Automated messa ge] The system which generated this result transmitted reference range: 10*3/?L. The reference range was not used to interpret this result as normal/abnormal. GRAN MAT (NEUT) % (test code = 770-8) 70.8 % IMM GRAN % (test code = 7426255937) 0.40 % LYMPH % (test code = 736-9) 18.9 % MONO % (test code = 5905-5) 8.9 % EOS % (test code = 713-8) 0.4 % BASO % (test code = 706-2) 0.6 % GRAN MAT x10^3(ANC) (test code = 4900671587) 7.00 10*3/uL 1.99-6.95 H IMM GRAN x10^3 (test code = 9133824880) 0.04 10*3/uL 0.00-0.06 LYMPH x10^3 (test code = 731-0) 1.87 10*3/uL 1.09-3.23 MONO x10^3 (test code = 742-7) 0.88 10*3/uL 0.36-1.02 EOS x10^3 (test code = 711-2) 0.04 10*3/uL 0.06-0.53 L BASO x10^3 (test code = 704-7) 0.06 10*3/uL 0.01-0.09 Lab Interpretation (test code = 46340-5) [facility] [id number] 20:00:11No fracture or subluxation. RL: 4131 End [...] height. Noevidence of spina bifida other L5. [facility], Radiant Results Inft User - 11/10/2020 2:01 [...] fracture or subluxation.RL: 4131 End of report [facility] Notes Date/Time Note Provider Source 2025-02-24 23:06:24 Pt arrives ambulatory to ED c/o right arm pain. He reports that he ws skate boarding and landed wrong and believes he may have broken it. This happened aprox 3 hrs [employer]. + pulses bilat UE Iveth Joseph RN [facility] 2024-07-27 14:15:00 Addended by: DARYL THAKUR MD on: 07/31/2024 02:16 PM Modules accepted: Level of Service EDYTA[employer] STAFF [facility] 2024-07-23 17:52:48 Patient discharged to home. Patient given printed and verbal discharge instructions regarding diagnosis. Instructed to follow up with PCP. Patient verbalized understanding of instructions. Patient awake, alert, oriented, respirations even and unlabored, skin warm and dry, color appropriate for race. No adverse reaction to meds given in ER noted upon discharge. . Discussed medications. Advised to seek medical attention for new/prolonged/worsening of symptoms, patient ambulated from unit with steady gait in no apparent distress. Jack Day RN [facility] 2024-07-23 16:05:28 CC: patient presents to the ER with complaints of right sided hand pain resulting from the inability to open his hand. Patient states symptoms have been present and gotten worse since April 18, 2024. Denies history of MS. Awake, alert, oriented, resp reg unlabored, skin warm and dry, color appropriate for race, moves all ext without difficulty, amb without assistance. Appears in no distress. Federica Laughlin RN [facility] 2024-07-23 16:00:00 [facility] Emergency Department Note Patient Name: Jacob Rodriguez Date of : 1990 33 year old male Treatment Room: Room/bed info not found Primary Care Physician: PATIENT DOES NOT HAVE A PCP Patient Escorted by: Self [9] Mode of Arrival: Personal means [1] EMS Treatment Prior to ED Arrival: [employer] treatment: None Travel and Exposure Screening: Symptoms Does patient have any of these symptoms?: (not recorded) Exposure Screening Has patient had contact with someone with a communicable disease in the last month?: (not recorded) Diseases exposed to:: (not recorded) Is Patient ?: (not recorded) Exposure Date: (not recorded) Chief Complaint: Chief Complaint Patient presents with Hand Pain Right History of Present Illness: 3+ months of right hand 4/5th fingers curling up and locking, worsening over time. Thinks might be from repetitive use at work. No focal weakness or numbness. No injuries to area before it started. No known medical problems or daily medications. Past Medical History/Immunizations: No past medical history on file. Tetanus received in last 5 years: Unknown Allergies: No Known Allergies Past Social History: Substance & Sexual Activity No substance use or sexual activity history on file. Past Surgical History: No past surgical history on file. Review of Systems: Review of Systems Constitutional: Positive for activity change. Gastrointestinal: Negative for abdominal pain, nausea and vomiting. Musculoskeletal: Positive for arthralgias and myalgias. Skin: Negative for color change and wound. Neurological: Negative for weakness and numbness. Physical Exam: ED Triage Vitals [07/23/24 1606] Weight 65.8 kg (145 lb) Actual or estimated Estimated by patient/family report Height 1.753 m (5' 9") BP (!) 128/107 Pulse 72 Resp 20 Temp 37 ?C (98.6 ?F) Temp source Oral SpO2 99 % Measured on Room air Physical Exam Vitals and nursing note reviewed. Constitutional: General: He is not in acute distress. Appearance: He is well-developed. He is not ill-appearing or toxic-appearing. HENT: Head: Normocephalic and atraumatic. Eyes: General: No scleral icterus. Neck: Vascular: No JVD. Cardiovascular: Rate and Rhythm: Normal rate and regular rhythm. Pulses: Normal pulses. Pulmonary: Effort: Pulmonary effort is normal. No respiratory distress. Abdominal: General: There is no distension. Musculoskeletal: General: Tenderness present. No deformity. Cervical back: Normal range of motion and neck supple. Comments: Right 4/5th digits held in flexion, able to be straightened with pain but returns to flexion. Tender over palm and wrist Skin: General: Skin is warm and dry. Capillary Refill: Capillary refill takes less than 2 seconds. Findings: No rash. Neurological: Mental Status: He is alert. Psychiatric: Behavior: Behavior normal. Thought Content: Thought content normal. Radiology: XR HAND <3 VW RIGHT Final Result ORDERING PHYSICIAN: CASEY BENJAMIN. HISTORY: pain TECHNIQUE: 2 views COMPARISON: None. FINDINGS: Alignment is anatomic. Joint spaces are maintained. No fracture is identified. A small soft tissue nodule projects at the dorsal aspect of the small finger, near the PIP joint. There is long finger soft tissue swelling located near the PIP joint. IMPRESSION No acute bony finding. Mild long finger soft tissue swelling. Nonspecific soft tissue nodule of proximal small finger. End of Report Lab Results: Lab Results COMP. METABOLIC PANEL (18056) - Abnormal Result Value Ref Range NA 138 135 - 145 mmol/L K 3.9 3.5 - 5.0 mmol/L CL 105 98 - 108 mmol/L CO2 TOTAL 26 23 - 31 mmol/L AGAP 7 2 - 16 BUN 10 7 - 23 mg/dL GLUCOSE 101 70 - 110 mg/dL CREATININE 0.81 0.60 - 1.25 mg/dL TOTAL BILI 0.7 0.1 - 1.1 mg/dL CALCIUM 9.2 8.6 - 10.6 mg/dL T PROTEIN 7.7 6.3 - 8.2 g/dL ALBUMIN 4.7 3.5 - 5.0 g/dL ALK PHOS 75 34 - 122 U/L ALTv 47 5 - 50 U/L AST(SGOT) 42 (*) 13 - 40 U/L eGFR 120.1 mL/min/1.73m2 CBC WITH DIFF - Abnormal WBC 9.89 4.20 - 10.70 10*3/?L RBC 5.01 4.26 - 5.52 10*6/?L HGB 15.9 12.2 - 16.4 g/dL HCT 46.8 38.4 - 49.3 % MCV 93.4 81.7 - 95.6 fL MCH 31.7 26.1 - 32.7 pg MCHC 34.0 31.2 - 35.0 g/dL RDW-SD 41.6 38.5 - 51.6 fL RDW-CV 12.1 12.1 - 15.4 % PLT 318 150 - 328 10*3/?L MPV 9.0 (*) 9.8 - 13.0 fL NRBC/100 WBC 0.0 0.0 - 10.0 /100 WBCs NRBC x10 3 <0.01 10*3/?L GRAN MAT (NEUT) % 70.8 % IMM GRAN % 0.40 % LYMPH % 18.9 % MONO % 8.9 % EOS % 0.4 % BASO % 0.6 % GRAN MAT x10 3 (ANC) 7.00 (*) 1.99 - 6.95 10*3/uL IMM GRAN x10 3 0.04 0.00 - 0.06 10*3/uL LYMPH x10 3 1.87 1.09 - 3.23 10*3/uL MONO x10 3 0.88 0.36 - 1.02 10*3/uL EOS x10 3 0.04 (*) 0.06 - 0.53 10*3/uL BASO x10 3 0.06 0.01 - 0.09 10*3/uL EKG: If EKG completed, see Procedure Note. Orders and Treatments: Orders Placed This Encounter Procedures XR HAND <3 VW RIGHT Comp. Metabolic Panel (15495) Cbc with Diff Orders Placed This Encounter Medications methocarbamoL (ROBAXIN) tablet 1,000 mg DISCONTD: ketorolac (TORADOL) injection 15 mg ketorolac (TORADOL) injection 15 mg methocarbamoL 750 mg tablet First Provider Eval: ED Events Date/Time Event User Comments 07/23/24 1600 Medical Screening Begins CASEY BENJAMIN MD -- 07/23/24 1600 First Provider Evaluation CASEY BENJAMIN MD -- ED COURSE Diagnosis/Impression as of 07/23/24 7127 Right hand pain Procedures: Procedures MDM: Medical Decision Making Not consistent with nerve injury, able to be extended so doubt tendon involvement, not consistent with infection. Will xr, check labs for calcium level Xr negative for acute fracture or cause of symptoms, labs unremarkable. Follow up ortho, prn robaxin Problems Addressed: Right hand pain: complicated acute illness or injury Amount and/or Complexity of Data Reviewed Labs: ordered. Decision-making details documented in ED Course. Radiology: ordered. Decision-making details documented in ED Course. Risk Prescription drug management. Flowsheet Documentation: Scoring Tools: No data recorded Disposition/Condition: ED Disposition ED Disposition Disch - Home Condition Stable Comment -- Discharge Medications: Patient's Medications START taking these medications METHOCARBAMOL 750 MG TABLET Take 1 tablet by mouth 3 (three) times daily as needed for Pain (scale 7-10) or Pain (scale 4-6). CONTINUE taking these medications which have NOT CHANGED CYCLOBENZAPRINE 10 MG TABLET Take 1 tablet by mouth 3 (three) times daily. IBUPROFEN 600 MG TABLET Take 1 tablet by mouth every 6 (six) hours as needed for Pain (scale 4-6). START taking Modified Medications as Prescribed No medications on file STOP taking these medications No medications on file Follow-up: Contact information for follow-up Pcp, Patient Does Not Have A Relationship: PCP - General [address] [facility] [id number] Electronically signed by: Casey Benjamin MD 07/23/24 1737 [facility]
[2025-05-26] MEDS ORDERED: LORazepam 2 MG/ML VIAL ONE (22:16)
[2025-05-26] MEDS ORDERED: NA CHLORIDE 0.9% 1,000 ML ONE (22:17)
[2025-05-26 22:43] LABS: Absolute Lymphocytes (CBC) 1.6 K/uL (0.7-4.9); Hematocrit 49.7 % (39.6-49.0); Hemoglobin 17.1 g/dL (13.6-17.9); MCH 31.1 pg (27.0-35.0); MCHC 34.3 g/dL (32.0-36.0); MCV 90.7 fL (80-100); MPV 8.5 fL (7.6-11.3); Nucleated RBC Absolute Count 0.1 (0-0); Nucleated Red Blood Cells % 0.5 % (0-0); RBC Red Blood Cell Count 5.49 M/uL (4.33-5.43); White Blood Count 9.60 thou/uL (4.3-10.9)
[2025-05-26 22:56] LABS: ALT/SGPT 70.0 U/L (16-61); AST/SGOT 38.0 U/L (15-37); Albumin 3.6 g/dL (3.4-5.0); Albumin/Globulin Ratio 1.1 (1.1-1.8); Alkaline Phosphatase 92.0 U/L (45-117); Anion Gap 7.1 mEq/L (5.0-15.0); BUN Blood Urea Nitrogen 8.0 mg/dL (7-18); Globulin 3.2 g/dL (2.3-3.5); Glucose Level 105.0 mg/dL (74-106); Potassium 3.1 mEq/L (3.5-5.1)
--- NOTE | 2025-05-26 23:07 | ER ---
Nurse's Notes [facility] Name: Lewis Rodriguez Age: 34 yrs Sex: Male : 1990 Arrival Date: 05/26/2025 Time: 21:58 Bed 10 Private MD: Diagnosis: Anxiety disorder, unspecified;Hypokalemia Presentation: 05/26 22:05 Chief complaint: EMS states: patient feels anxious, due to family stressors. kj2 Coronavirus screen: Client denies travel out of the [place] in the last 14 days. Ebola Screen: No symptoms or risks identified at this time. Initial Sepsis Screen: Does the patient meet any 2 criteria? No. Patient's initial sepsis screen is negative. Does the patient have a suspected source of infection? No. Patient's initial sepsis screen is negative. Risk Assessment: Do you want to hurt yourself or someone else? Patient reports no desire to harm self or others. Onset of symptoms was May 26, 2025. 22:05 Method Of Arrival: EMS: [facility] kj2 22:05 Acuity: LAY 3 kj2 Triage Assessment: 22:08 General: Appears in no apparent distress. Behavior is anxious. Pain: Denies pain. kj2 Neuro: Level of Consciousness is awake, alert, obeys commands, Oriented to person, place, time, situation. Cardiovascular: Patient's skin is warm and dry. Respiratory: Airway is patent Respiratory effort is unlabored. GI: No signs and/or symptoms were reported involving the gastrointestinal system. : No signs and/or symptoms were reported regarding the genitourinary system. Historical: - Allergies: 22:07 No Known Allergies; kj2 - Immunization history:: Adult Immunizations unknown. - Infectious Disease History:: Denies. - Social history:: Smoking status: Patient reports the use of cigarette tobacco products, smokes one-half pack cigarettes per day. Screenin:09 [facility] ED Fall Risk Assessment (Adult) History of falling in the last 3 months, kj2 including since admission No falls in past 3 months (0 pts) Confusion or Disorientation No (0 pts) Intoxicated or Sedated No (0 pts) Impaired Gait No (0 pts) Mobility Assist Device Used No (0 pt) Altered Elimination No (0 pt) Score/Fall Risk Level 0 - 2 = Low Risk Maintained a safe environment, Hourly rounding (assess needs \T\ fall precautionary measures) done. Abuse screen: Denies threats or abuse. Denies injuries from another. Nutritional screening: No deficits noted. Tuberculosis screening: No symptoms or risk factors identified. Assessment: 22:08 General: see triage assessment. kj2 23:08 Reassessment: Patient appears in no apparent distress at this time. Patient and/or kj2 family updated on plan of care and expected duration. Pain level reassessed. Patient is alert, oriented x 3, equal unlabored respirations, skin warm/dry/pink. Vital Signs: 22:05 BP 139 / 84; Pulse 75; Resp 20; Temp 98; Pulse Ox 100% on R/A; Weight 68.04 kg; Height kj2 5 ft. 9 in. ; 23:08 BP 121 / 80; Pulse 65; Resp 18; Pulse Ox 100% on R/A; kj2 23:20 BP 111 / 78; Pulse 64; Resp 20; Temp 98; Pulse Ox 100% on R/A; kj2 22:05 Body Mass Index 22.15 (68.04 kg, 175.26 cm) kj2 ED Course: 22:04 Patient arrived in ED. kj2 22:07 [facility]C [facility] kb 22:07 Satnam Boyle DO is Attending Physician. kb 22:07 Triage completed. kj2 22:09 Patient has correct armband on for positive identification. Call light in reach. Side kj2 rails up X 1. Provided Education on: call light. 22:10 Arm band placed on Patient placed in the treatment room. kj2 22:12 Helen Rosa, RN is Primary Nurse. kj2 22:30 Inserted saline lock: 20 gauge in right antecubital area, using aseptic technique. kj2 Blood collected. Flushed with 10 mL NS. 23:20 No provider procedures requiring assistance completed. IV discontinued, intact, kj2 bleeding controlled, No redness/swelling at site. Pressure dressing applied. Administered Medications: 22:30 Drug: NS 0.9% IV 1000 ml IV at 1000 ml once; to be given as a bolus over 60 minutes kj2 Route: IV; Rate: 1000 ml; Site: right antecubital; 23:21 Follow up: IV Status: Completed infusion; IV Intake: 1000ml kj2 22:30 Drug: Ativan IVP 1 mg IVP once Route: IVP; Site: right antecubital; kj2 23:21 Follow up: Response: No adverse reaction kj2 23:13 Drug: Potassium Chloride PO 40 mEq PO once Route: PO; kj2 23:22 Follow up: Response: No adverse reaction kj2 Medication: 23:20 VIS not applicable for this client. kj2 Intake: 23:21 IV: 1000ml; Total: 1000ml. kj2 Outcome: 23:07 Discharge ordered by MD. izaguirre 23:21 Discharged to home ambulatory, kj2 23:21 Condition: stable 23:21 Discharge instructions given to patient, Instructed on discharge instructions, follow up and referral plans. Demonstrated understanding of instructions, follow-up care, 23:31 Patient left the ED. kj2 Signatures: Irma Anand, YENNI-C FURNITURE STAINER-Helen Mcneil, RN RN kj2
--- NOTE | 2025-05-26 23:07 | EDPHYS ---
Physician Documentation [facility] Name: Lewis Rodriguez Age: 34 yrs Sex: Male : 1990 Arrival Date: 05/26/2025 Time: 21:58 Bed 10 Private MD: ED Physician Satnam Boyle HPI: 05/26 22:39 This 34 yrs old Male presents to ER via EMS with complaints of Anxiety. kb 22:39 Pt is a 34 year old male who presents for anxiety. States he has been under a lot of kb stress and he is worried about something else being wrong. 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 . Historical: - Allergies: 22:07 No Known Allergies; kj2 - Immunization history:: Adult Immunizations unknown. - Infectious Disease History:: Denies. - Social history:: Smoking status: Patient reports the use of cigarette tobacco products, smokes one-half pack cigarettes per day. ROS: 22:39 Constitutional: As per HPI kb Exam: 22:39 Constitutional: This is a well developed, well nourished patient who is awake, alert, kb and in no acute distress. Head/Face: Normocephalic, atraumatic. ENT: Moist Mucous membranes Cardiovascular: Regular rate Respiratory: Respirations even and unlabored. No increased work of breathing. Talking in full sentences Abdomen/GI: Soft, non-tender. No distention Skin: Warm, dry with normal turgor. Normal color. MS/ Extremity: Pulses equal, no cyanosis. Neurovascular intact. Full, normal range of motion. Neuro: Awake and alert, GCS 15, oriented to person, place, time, and situation. Vital Signs: 22:05 BP 139 / 84; Pulse 75; Resp 20; Temp 98; Pulse Ox 100% on R/A; Weight 68.04 kg; Height kj2 5 ft. 9 in. ; 23:08 BP 121 / 80; Pulse 65; Resp 18; Pulse Ox 100% on R/A; kj2 23:20 BP 111 / 78; Pulse 64; Resp 20; Temp 98; Pulse Ox 100% on R/A; kj2 22:05 Body Mass Index 22.15 (68.04 kg, 175.26 cm) kj2 MDM: 22:07 Medical Screening Exam initiated kb 23:06 Differential diagnosis: dehydration, abnormal electrolytes, acute stress reaction. Data kb reviewed: vital signs, nurses notes. Historians other than the Patient: EMS: [facility]. Counseling: I had a detailed discussion with the patient and/or guardian regarding the historical points, exam findings, and any diagnostic results supporting the discharge/admit diagnosis, lab results, the need for outpatient follow up, a family practitioner, to return to the emergency department if symptoms worsen or persist or if there are any questions or concerns that arise at home. 05/26 22:07 Order name: CBC with Diff; Complete Time: 23:27 kb 05/26 22:07 Order name: CMP; Complete Time: 23:03 kb 05/26 22:54 Order name: CBC Smear Scan; Complete Time: :27 EDMS 05/26 22:07 Order name: IV Start; Complete Time: 22:30 kb Administered Medications: 22:30 Drug: NS 0.9% IV 1000 ml IV at 1000 ml once; to be given as a bolus over 60 minutes kj2 Route: IV; Rate: 1000 ml; Site: right antecubital; 23:21 Follow up: IV Status: Completed infusion; IV Intake: 1000ml kj2 22:30 Drug: Ativan IVP 1 mg IVP once Route: IVP; Site: right antecubital; kj2 23:21 Follow up: Response: No adverse reaction kj2 23:13 Drug: Potassium Chloride PO 40 mEq PO once Route: PO; kj2 23:22 Follow up: Response: No adverse reaction kj2 Disposition: 05/27 01:15 I was immediately available on-site in the Emergency Department for consultation in the ms3 care of the patient. Disposition Summary: 05/26/25 23:07 Discharge Ordered Notes: Location: Home kb Condition: Stable kb Diagnosis - Anxiety disorder, unspecified kb - Hypokalemia kb Followup: kb - With: Emergency Department - When: As needed - Reason: Worsening of condition Followup: kb - With: Private Physician - When: 2 - 3 days - Reason: Recheck today's complaints, Continuance of care, Re-evaluation by your physician Discharge Instructions: - Discharge Summary Sheet kb - Panic Attack, [id number] kb - Hypokalemia kb - Managing Anxiety, Adult kb Forms: - Medication Reconciliation Form kb - Antibiotic Education kb - Prescription Opioid Use kb - Patient Portal Instructions kb - Leadership Thank You Letter kb Signatures: Dispatcher [employer] Irma Coates, YENNI-C YENNI-Satnam Walton, DO DO ms3 Helen Rosa, RN RN kj2
[2025-05-26] MEDS ORDERED: POTASSIUM CL SA 10 MEQ TAB PO ONE (23:12)
[2025-05-26 23:24] LABS: Blood Morphology Comment NOT SEEN (NOT SEEN); White Blood Cell Scan OK (OK)
[2025-05-27 00:27] VITALS: O2SAT 100
[2025-05-27 00:28] VITALS: TEMP 98
[2025-05-27 00:30] VITALS: BP 111/78
== END 2025-05-26 23:31 | disposition home or self-care (01) ==
LOC: ER 21:58
DX: F41.9 Anxiety disorder, unspecified (principal); E87.6 Hypokalemia; F17.210 Nicotine dependence, cigarettes, uncomplicated
CPT/HCPCS: 96361; 85025; 36415; 80053; 96374; 99284; J7030